=== PATIENT | male | born 1960 | race Caucasian/White ===

== ENCOUNTER → 2016-12-04 | Outpatient (CLI) | payer BC, OTHER | LOC: BRMIMAGING 10:45 | PROVIDERS: ATTEND Registered Nurse | DX: R59.0 Localized enlarged lymph nodes (principal) | CPT/HCPCS: 76882-PO ==

== ENCOUNTER → 2017-03-01 | Outpatient (CLI) | payer BC | LOC: BRMIMAGING 11:23 | PROVIDERS: ATTEND Registered Nurse | DX: N50.812 Left testicular pain (principal) | CPT/HCPCS: 76870-PO ==